=== PATIENT | female | born 1970 | race Caucasian/White ===

== ENCOUNTER 2020-05-17 21:31 | Emergency (ER) | payer MEDICAID ==
[~2020-05-17] VITALS: Ht 154.9 cm; Wt 90.7 kg
[2020-05-17 22:10] VITALS: BP_SYST 131
[2020-05-17] MEDS ORDERED: NACL 0.9% 1,000 ML IV ONE (22:59)
[2020-05-17] MEDS ORDERED: KETOROLAC TROMETHAMINE 30 MG VIAL IVP ONE (23:00)
[2020-05-17 23:18] LABS: BASOPHILS % (AUTO) 0.2 % (0.0-2.0); EOSINOPHILS % (AUTO) 0.1 % (0.0-4.0); HEMATOCRIT 39.6 % (36-48); LYMPHOCYTES # (AUTO) 1.1 K/uL (1.0-5.5); LYMPHOCYTES % (AUTO) 10.2 % (20.5-51.5); MEAN CORPUSCULAR HEMOGLOBIN 31 pg (27-31); MEAN CORPUSCULAR HGB CONC 33 % (32-36); MEAN CORPUSCULAR VOLUME 93 fL (79.0-98.0); MONOCYTES # (AUTO) 0.3 K/uL (0.0-1.0); MONOCYTES % (AUTO) 2.5 % (1.7-9.3); NEUTROPHILS # (AUTO) 9.8 K/uL (1.8-7.7); PLATELET COUNT (AUTO) 217 K/uL (130-430); RED BLOOD CELL COUNT(AUTO) 4.25 MIL/uL (4.2-6.2); RED CELL DISTRIBUTION WIDTH 13.5 % (9.0-15.0); WHITE BLOOD COUNT (AUTO) 11.2 K/uL (4.8-10.8)
[2020-05-17 23:36] LABS: CALCIUM 9.3 mg/dL (8.4-11.0); CREATININE 1.1 mg/dL (0.55-1.30); POTASSIUM 3.6 mmol/L (3.5-5.1)
[2020-05-17 23:37] LABS: INR 1.1 (0.8-1.2); PROTHROMBIN TIME 10.6 SECS (9.5-12.5)
[2020-05-17 23:40] LABS: ALBUMIN 3.8 g/dL (3.4-4.8); TOTAL BILIRUBIN 0.5 mg/dL (0.0-1.0)
[2020-05-18 01:15] LABS: BILIRUBIN,URINE NEGATIVE (NEGATIVE); BLOOD, URINE 3+ (NEGATIVE); CLARITY/URINE CLEAR (CLEAR); COLOR,URINE YELLOW (YELLOW); GLUCOSE,URINE NEGATIVE (NEGATIVE); KETONES,URINE NEGATIVE (NEGATIVE); LEUKOCYTE ESTERASE ,URINE NEGATIVE (NEGATIVE); NITRITE, URINE NEGATIVE (NEGATIVE); PROTEIN URINE NEGATIVE (NEGATIVE); UROBILINOGEN,URINE 0.2 (0.2-1.0)
[2020-05-18] MEDS ORDERED: MORPHINE 4 MG/ML INJ. SYRINGE IVP ONE (01:30)
[2020-05-18 01:31] LABS: BACTERIA,URINE FEW /HPF (None Seen); WBC,URINE 0-3 /HPF (0-3)
[2020-05-18 01:56] VITALS: BP_SYST 131
== END 2020-05-18 01:56 | disposition home or self-care (01) ==
LOC: SED 21:31
DX: N13.2 Hydronephrosis with renal and ureteral calculous obstruction (principal)
CPT/HCPCS: 36415; 74176; 80053; 81000; 82150; 83690; 85025; 85610; 96374; 96375; 99284; J1885; J2270; J7030